=== PATIENT | female | born 1955 | race African-American/Black ===

== ENCOUNTER 2017-05-10 13:10 | Observation (INO) | payer OTHER ==
[2017-05-10] MEDS ORDERED: Sodium Chloride 0.9% 2.5 ML Syringe FLUSH PRN (13:22)
[2017-05-10] MEDS ORDERED: Sodium Chloride 0.9% 10 ML Syringe FLUSH PRN (13:22)
--- NOTE | 2017-05-10 13:28 | EDM.PDOC ---
ED HPI GENERAL MEDICAL PROBLEM - General Chief Complaint: General Stated Complaint: LEFT SIDE NUMBNESS Time Seen by Provider: 05/10/17 13:18 Source of Information: Reports: Patient History Limitations: Reports: No Limitations - History of Present Illness INITIAL COMMENTS - FREE TEXT/NARRATIVE: History of present illness: []Patient has had 3-4 days of intermittent left arm numbness and tingling with pain in the back of the left arm and a headache. She denies any chest pain, shortness of breath, nausea, vomiting or visual changes. She stated that she tried to call Dr. Dumas, but he was unavailable. Review of systems: As per history of present illness and below otherwise all systems reviewed and negative. Past medical history: As per history of present illness and as reviewed below otherwise noncontributory. Surgical history: As per history of present illness and as reviewed below otherwise noncontributory. Social history: No reported history of drug or alcohol abuse. Family history: As per history of present illness and as reviewed below otherwise noncontributory. Physical exam: General: Well developed, well nourished in NAD HEENT: Atraumatic, normocephalic, pupils reactive, negative for conjunctival pallor or scleral icterus, mucous membranes moist, throat clear, neck supple, nontender, trachea midline. Lungs: Clear to auscultation, breath sounds equal bilaterally, chest nontender. No wheezing or rhonchi Heart: S1S2, regular, negative for clicks, rubs, or JVD. Abdomen: Soft, nondistended, nontender. Negative for masses or hepatosplenomegaly. Negative for costovertebral tenderness. Pelvis: Stable nontender. Genitourinary: Deferred. Rectal: Deferred. Extremities: Atraumatic, negative for cords or calf pain. Neurovascular unremarkable. Neuro: Awake, alert, oriented. Cranial nerves II through XII unremarkable. Cerebellum unremarkable. Patient has left arm drift Diagnostics: []CT head or bleed or infarct, CBC negative, chemistry negative, troponin normal , EKG normal sinus rhythm without acute ischemia, Therapeutics: []Aspirin ordered after swallowing study was passed and Dr. Monroy requested Impression: []TIA Plan: []Admit to observation on telemetry Definitive disposition and diagnosis as appropriate pending reevaluation and review of above. left shoulder Pain Score (Numeric/FACES): 8 - Related Data Allergies Allergy/AdvReac Type Severity Reaction Status Date / Time No Known Allergies Allergy Verified 05/10/17 13:15 Home Meds: Home Meds Chlorthalidone 25 mg PO DAILY 05/10/17 [History] Felodipine [Felodipine ER] 5 mg PO DAILY 05/10/17 [History] Losartan [Cozaar] 100 mg PO DAILY 05/10/17 [History] ED ROS GENERAL - Review of Systems Review Of Systems: See Below (See history of present illness) ED EXAM, GENERAL - Physical Exam Exam: See Below (See history of present illness) Course - Vital Signs Last Recorded V/S: Last Vital Signs Temp 98.7 F 05/10/17 13:17 Pulse 79 05/10/17 13:17 Resp 16 05/10/17 13:22 BP 159/92 H 05/10/17 13:22 Pulse Ox 98 05/10/17 13:22 - Orders/Labs/Meds Orders: Active Orders 24 hr Category Date Time Status Patient Status [ADT] Stat ADT 05/10/17 14:55 Active Assess Neurological Status [RC] ASDIRECTED Care 05/10/17 13:22 Active Bedrest [RC] ASDIRECTED Care 05/10/17 13:22 Active Blood Glucose Check, Bedside [RC] STAT Care 05/10/17 13:22 Active Cardiac Monitoring [RC] . DIRECTED Care 05/10/17 13:22 Active EKG Documentation Completion [RC] STAT Care 05/10/17 13:22 Active Height and Weight [RC] UPON Care 05/10/17 13:22 Active Initiate Acute Stroke Protocol [RC] STAT Care 05/10/17 13:22 Active NIH Stroke Scale [RC] ASDIRECTED Care 05/10/17 13:22 Active Nursing Bedside Swallow Screen [RC] ASDIRECTED Care 05/10/17 13:22 Active Oxygen Therapy [RC] ASDIRECTED Care 05/10/17 13:22 Active Stroke Education, General [RC] Click to Edit Care 05/10/17 13:22 Active Vital Signs [RC] Q15M Care 05/10/17 13:22 Active Peripheral IV Insertion Adult [OM.PC] Stat Oth 05/10/17 13:22 Ordered Peripheral IV Insertion Adult [OM.PC] Stat Oth 05/10/17 13:22 Ordered Labs: Laboratory Tests 05/10/17 05/10/17 05/10/17 Range/Units 13:21 13:44 13:44 WBC 3.94 L (4.0-11.0) K/uL RBC 4.76 (4.30-5.90) M/uL Hgb 12.8 (12.0-16.0) g/dL Hct 39.7 (36.0-46.0) % MCV 83.4 (80.0-98.0) fL MCH 26.9 L (27.0-32.0) pg MCHC 32.2 (31.0-37.0) g/dL RDW Std Deviation 41.5 (28.0-62.0) fl RDW Coeff of [place] 14 (11.0-15.0) % Plt Count 209 (150-400) K/uL MPV 10.30 (7.40-12.00) fL Neut % (Auto) 48.0 (48.0-80.0) % Lymph % (Auto) 37.8 (16.0-40.0) % [place] % (Auto) 11.4 (0.0-15.0) % Eos % (Auto) 2.3 (0.0-7.0) % Baso % (Auto) 0.5 (0.0-1.5) % Neut # (Auto) 1.9 (1.4-5.7) K/uL Lymph # (Auto) 1.5 (0.6-2.4) K/uL [place] # (Auto) 0.5 (0.0-0.8) K/uL Eos # (Auto) 0.1 (0.0-0.7) K/uL Baso # (Auto) 0.0 (0.0-0.1) K/uL Nucleated RBC % 0.0 /100WBC Nucleated RBCs # 0 K/uL INR 1.00 APTT 28.7 (18.6-31.3) SEC Sodium (136-145) mmol/L Potassium (3.5-5.1) mmol/L Chloride (98-107) mmol/L Carbon Dioxide (21.0-32.0) mmol/L BUN (7.0-18.0) mg/dL Creatinine (0.6-1.0) mg/dL Est Cr Clr Drug Dosing mL/min Estimated GFR (MDRD) ml/min Glucose (74-106) mg/dL POC Glucose 87 (60-110) mg/dL Calcium (8.5-10.1) mg/dL Total Bilirubin (0.2-1.0) mg/dL AST (15-37) IU/L ALT (14-63) IU/L Alkaline Phosphatase (46-116) U/L Troponin I (0.000-0.056) ng/mL Total Protein (6.4-8.2) g/dL Albumin (3.4-5.0) g/dL Globulin (2.0-3.5) g/dL Albumin/Globulin Ratio (1.3-2.8) TSH 3rd Generation (0.36-3.74) uIU/mL 05/10/17 Range/Units 13:44 WBC (4.0-11.0) K/uL RBC (4.30-5.90) M/uL Hgb (12.0-16.0) g/dL Hct (36.0-46.0) % MCV (80.0-98.0) fL MCH (27.0-32.0) pg MCHC (31.0-37.0) g/dL RDW Std Deviation (28.0-62.0) fl RDW Coeff of [place] (11.0-15.0) % Plt Count (150-400) K/uL MPV (7.40-12.00) fL Neut % (Auto) (48.0-80.0) % Lymph % (Auto) (16.0-40.0) % [place] % (Auto) (0.0-15.0) % Eos % (Auto) (0.0-7.0) % Baso % (Auto) (0.0-1.5) % Neut # (Auto) (1.4-5.7) K/uL Lymph # (Auto) (0.6-2.4) K/uL [place] # (Auto) (0.0-0.8) K/uL Eos # (Auto) (0.0-0.7) K/uL Baso # (Auto) (0.0-0.1) K/uL Nucleated RBC % /100WBC Nucleated RBCs # K/uL INR APTT (18.6-31.3) SEC Sodium 139 (136-145) mmol/L Potassium 3.6 (3.5-5.1) mmol/L Chloride 102 (98-107) mmol/L Carbon Dioxide 26.4 (21.0-32.0) mmol/L BUN 13 (7.0-18.0) mg/dL Creatinine 0.9 (0.6-1.0) mg/dL Est Cr Clr Drug Dosing 69.47 mL/min Estimated GFR (MDRD) > 60.0 ml/min Glucose 81 (74-106) mg/dL POC Glucose (60-110) mg/dL Calcium 9.4 (8.5-10.1) mg/dL Total Bilirubin 0.5 (0.2-1.0) mg/dL AST 27 (15-37) IU/L ALT 29 (14-63) IU/L Alkaline Phosphatase 53 (46-116) U/L Troponin I 0.053 (0.000-0.056) ng/mL Total Protein 7.3 (6.4-8.2) g/dL Albumin 3.8 (3.4-5.0) g/dL Globulin 3.5 (2.0-3.5) g/dL Albumin/Globulin Ratio 1.1 L (1.3-2.8) TSH 3rd Generation 1.51 (0.36-3.74) uIU/mL Meds: Medications Discontinued Medications Generic Name Dose Route Start Last Admin Trade Name Freq PRN Reason Stop Dose Admin Aspirin 324 mg 05/10/17 14:47 05/10/17 14:54 Aspirin PO 05/10/17 14:48 324 mg ONETIME ONE Administration Sodium Chloride 10 ml 05/10/17 13:22 Saline Flush FLUSH ASDIRECTED PRN Keep Vein Open Sodium Chloride 2.5 ml 05/10/17 13:22 Saline Flush FLUSH ASDIRECTED PRN Keep Vein Open Departure - Departure Time of Disposition: 14:54 Disposition: Refer to Observation Condition: Good Clinical Impression: TIA (transient ischemic attack) - Discharge Information Referrals: PCP,Unknown [Primary Care Provider] - Forms: ED Department Discharge - My Orders Last 24 Hours: My Active Orders 05/10/17 13:22 Assess Neurological Status [RC] ASDIRECTED Bedrest [RC] ASDIRECTED Blood Glucose Check, Bedside [RC] STAT Cardiac Monitoring [RC] . DIRECTED EKG Documentation Completion [RC] STAT Height and Weight [RC] UPON Initiate Acute Stroke Protocol [RC] STAT NIH Stroke Scale [RC] ASDIRECTED Nursing Bedside Swallow Screen [RC] ASDIRECTED Oxygen Therapy [RC] ASDIRECTED Stroke Education, General [RC] Click to Edit Vital Signs [RC] Q15M Peripheral IV Insertion Adult [OM.PC] Stat Peripheral IV Insertion Adult [OM.PC] Stat 05/10/17 14:55 Patient Status [ADT] Stat - Assessment/Plan Last 24 Hours: My Active Orders 05/10/17 13:22 Assess Neurological Status [RC] ASDIRECTED Bedrest [RC] ASDIRECTED Blood Glucose Check, Bedside [RC] STAT Cardiac Monitoring [RC] . DIRECTED EKG Documentation Completion [RC] STAT Height and Weight [RC] UPON Initiate Acute Stroke Protocol [RC] STAT NIH Stroke Scale [RC] ASDIRECTED Nursing Bedside Swallow Screen [RC] ASDIRECTED Oxygen Therapy [RC] ASDIRECTED Stroke Education, General [RC] Click to Edit Vital Signs [RC] Q15M Peripheral IV Insertion Adult [OM.PC] Stat Peripheral IV Insertion Adult [OM.PC] Stat 05/10/17 14:55 Patient Status [ADT] Stat
--- NOTE | 2017-05-10 13:40 | CT ---
EXAMINATION: Non contrast CT head. Coronal and sagittal reformats. HISTORY: Stroke code FINDINGS: No evidence of intra or extra axial hemorrhage, mass, midline shift, hydrocephalus or edema. No hypoattenuation changes in the major vascular territories to suggest acute infarct. No abnormal intracranial calcifications are detected. No evidence of substantial vascular calcificat ions. Paranasal sinuses and mastoid air cells are well aerated without substantial findings. Orbits and gl obes are symmetric. Pituitary fossa appears unremarkable. Calvarium is intact. No evidence of skull fracture. IMPRESSION: No acute intracranial findings. Above findings were called to the ER at 1:36 PM.
[2017-05-10 14:22] LABS: CHLORIDE,CL 102 mmol/L (98-107); SODIUM,NA 139 mmol/L (136-145)
[2017-05-10] MEDS ORDERED: Aspirin 81 MG Tab.Chew PO ONE (14:47)
[2017-05-10] MEDS ORDERED: Ondansetron 4 MG/2 ML SDV IVPUSH PRN (15:49)
[2017-05-10] MEDS ORDERED: Acetaminophen 325 MG Tab PO PRN (15:49)
[2017-05-10] MEDS ORDERED: Docusate Sodium 100 MG Cap PO PRN (15:49)
--- NOTE | 2017-05-10 16:07 | PCM.HP ---
H&P History of Present Illness - General Date of Service: 05/10/17 Source of Information: Patient, Old Records (clinic notes reviewed) History Limitations: Reports: No Limitations - History of Present Illness Initial Comments - Free Text/Narative: This 62 year old AA female with pmh of uncontrolled HTN and MVP presented to the ED today with complaints of L arm parathesias and pain, along with headache and lightheadedness. She reports she has had this L arm, shoulder numbness, tingling and pain on and off for the past 4 days. The pain is mainly upper trapezius and shoulder blade that then shoots down to her L arm into her arm pit and onto her chest. Worsens with movement of L arm and shoulder, better with rest. Denies any recent trauma or repetitive movements. She reports associated nausea, frontal headache and some lightheadedness. She felt this time the pain was worse and decided to seek out medical treatment. She reports she saw Dr Flood end of March and was started on Felodipine due to uncontrolled HTN and she wonders if this was causing her symptoms. She reports she was on Amlodipine before and had to stop if due to muscle pain. She denies neck pain, fever or URI symptoms. No dyspnea or specifically chest pain. Her shoulder pain radiates to her upper shoulder and chest. No abdominal pain or urinary symptoms. No black or bloody BMs. She is eating and drinking well recently. She has significant family history of cardiac disease and CVAs, with her father dying of "massive heart attack" and a grandfather with large stroke. He mother has CAD and DM along with multiple uncles who have since passed from CVA and MIs. She reports she has had history of TIAs with L sided weakness and pain, not quite like this episode. This episode is worse pain. In the ED labwork all WNL. Head CT obtained, which was negative for any acute intracranial abnormalities. EKG SR with noteable LVH, no acute ischemic changes. She will be admitted with possible TIA. left shoulder Pain Score (Numeric/FACES): 8 - Related Data Allergies/Adverse Reactions: Allergies Allergy/AdvReac Type Severity Reaction Status Date / Time No Known Allergies Allergy Verified 05/10/17 13:15 Home Medications: Home Meds Chlorthalidone 25 mg PO DAILY 05/10/17 [History] Felodipine [Felodipine ER] 5 mg PO DAILY 05/10/17 [History] Losartan [Cozaar] 100 mg PO DAILY 05/10/17 [History] Past Medical History HEENT History: Reports: Impaired Vision Cardiovascular History: Reports: High Cholesterol, Hypertension. Denies: Afib, Blood Clots/VTE/DVT, MT Respiratory History: Reports: None. Denies: Asthma, COPD, PE Gastrointestinal History: Reports: None. Denies: Bowel Obstruction, GERD, GI Bleed Genitourinary History: Reports: None. Denies: Chronic Renal Insuffiency PROFESSOR OF PHYSICS History: Reports: None Musculoskeletal History: Reports: None Neurological History: Reports: TIA. Denies: CVA, Head Trauma, Migraines Psychiatric History: Reports: None. Denies: Anxiety, Depression Endocrine/Metabolic History: Reports: None. Denies: Diabetes, Type II, Hypothyroidism, Obesity/BMI 30+ Hematologic History: Reports: None. Denies: Anticoagulation Therapy Immunologic History: Reports: None Oncologic (Cancer) History: Reports: None Dermatologic History: Reports: None - Infectious Disease History Infectious Disease History: Reports: Chicken Pox - Past Surgical History HEENT Surgical History: Reports: None Cardiovascular Surgical History: Reports: None Respiratory Surgical History: Reports: None GI Surgical History: Reports: None Female Surgical History: Reports: None, Hysterectomy Endocrine Surgical History: Reports: None Neurological Surgical History: Reports: None Musculoskeletal Surgical History: Reports: None Oncologic Surgical History: Reports: None Social & Family History - Family History Cardiac: Reports: Aneurysm, CAD, Heart Failure, Hypertension, MT Neurological: Reports: CVA - Tobacco Use Smoking Status *Q: Never Smoker Second Hand Smoke Exposure: No - Caffeine Use Caffeine Use: Reports: None - Recreational Drug Use Recreational Drug Use: No H&P Review of Systems - Review of Systems: Review Of Systems: See Below General: Reports: No Symptoms. Denies: Fever, Chills, Malaise, Weakness HEENT: Reports: Headaches (frontal,better now.). Denies: Sinus Congestion, Sore Throat, Vertigo Pulmonary: Denies: Shortness of Breath, Wheezing, Cough, Sputum Cardiovascular: Reports: Lightheadedness. Denies: Chest Pain, Edema, Syncope Gastrointestinal: Reports: No Symptoms. Denies: Abdominal Pain, Black Stool, Bloody Stool, Nausea, Vomiting Genitourinary: Reports: No Symptoms. Denies: Dysuria, Frequency, Burning, Pain Musculoskeletal: Reports: Arm Pain (L arm pain radiated from L shoulder and upper trapezius.). Denies: Neck Pain Skin: Reports: No Symptoms Psychiatric: Reports: No Symptoms Neurological: Reports: Dizziness, Headache, Paresthesia (L arm). Denies: Seizure, Syncope, Trouble Speaking, Difficulty Walking, Change in Speech, Gait Disturbance Hematologic/Lymphatic: Reports: No Symptoms Immunologic: Reports: No Symptoms Exam - Exam Exam: See Below - Vital Signs Vital Signs: Last Vital Signs Temp 98.7 F 05/10/17 13:17 Pulse 57 L 05/10/17 14:22 Resp 16 05/10/17 14:22 BP 154/95 H 05/10/17 14:22 Pulse Ox 100 05/10/17 14:22 Weight: 77.9 kg - Exam Quality Assessment: Supplemental Oxygen, DVT Prophylaxis General: Alert, Oriented, Cooperative HEENT: Conjunctiva Clear, Mucosa Moist & [place], Posterior Pharynx Clear, Pupils Equal, Pupils Reactive Neck: Supple, Trachea Midline, Full Range of Motion. No: Lymphadenopathy Lungs: Clear to Auscultation, Normal Respiratory Effort Cardiovascular: Regular Rate, Regular Rhythm, Normal S1, Normal S2 GI/Abdominal Exam: Normal Bowel Sounds, Soft, Non-Tender, No Organomegaly, No Distention, No Abnormal Bruit, No Mass, Pelvis Stable Extremities: Normal Inspection, Normal Range of Motion, Non-Tender, No Pedal Edema, Normal Capillary Refill Neurological: Cranial Nerves Intact, Reflexes Equal Bilateral, Strength Equal Bilateral, Normal Gait, Normal Speech Neuro Extensive - Mental Status: Alert, Oriented x3, Normal Mood/Affect, Normal Cognition Neuro Extensive - Motor, Sensory, Reflexes: CN II-XII Intact, Normal Gait, Normal Reflexes Psychiatric: Alert, Normal Affect, Normal Mood - Patient Data Result Diagrams: 05/10/17 13:44 05/10/17 13:44 EKG INTERPRETATION EKG Date: 05/10/17 Rhythm: NSR Rate (Beats/Min): 60 P-Wave: Present QRS: Normal (LVH noted) ST-T: Normal Comparison: No Change *Q Meaningful Use (ADM) - VTE *Q VTE Criteria *Q: - Stroke *Q Stroke Criteria *Q: - AMI *Q AMI Criteria *Q: - Problem List (1) Arm paresthesia, left SNOMED Code(s): 43453298 ICD Code: R20.2 - PARESTHESIA OF SKIN Status: Acute Current Visit: Yes (2) Atypical chest pain SNOMED Code(s): 568561830 ICD Code: R07.89 - OTHER CHEST PAIN Status: Acute Current Visit: Yes (3) Hx of mitral valve prolapse SNOMED Code(s): 671041486 ICD Code: Z86.79 - PERSONAL HISTORY OF OTHER DISEASES OF THE CIRCULATORY SYSTEM Status: Acute Current Visit: Yes (4) TIA (transient ischemic attack) SNOMED Code(s): 782733317 ICD Code: G45.9 - TRANSIENT CEREBRAL ISCHEMIC ATTACK, UNSPECIFIED Status: Acute Current Visit: Yes Qualifiers: Transient cerebral ischemia type: unspecified Qualified Code(s): G45.9 - Transient cerebral ischemic attack, unspecified (5) Uncontrolled hypertension SNOMED Code(s): 42198138 ICD Code: I10 - ESSENTIAL (PRIMARY) HYPERTENSION Status: Chronic Current Visit: Yes Problem List Initiated/Reviewed/Updated: Yes Orders Last 24hrs: Active Orders 24 hr Category Date Time Status Ambulate [RC] ASDIRECTED Care 05/10/17 15:49 Ordered Intake and Output [RC] QSHIFT Care 05/10/17 15:50 Ordered Oxygen Therapy [RC] PRN Care 05/10/17 15:49 Ordered Up to Chair [RC] ASDIRECTED Care 05/10/17 15:49 Ordered VTE/DVT Education [RC] PER UNIT ROUTINE Care 05/10/17 15:49 Ordered Vital Signs [RC] Q4H Care 05/10/17 15:49 Ordered Heart Healthy Diet [DIET] Diet 05/10/17 Dinner Ordered Ang Head w wo Cont [MR] Urgent Exams 05/10/17 15:51 Ordered Ang Neck w wo Cont [MR] Urgent Exams 05/10/17 15:51 Ordered Brain w wo Cont [MR] Urgent Exams 05/10/17 15:51 Ordered Echo 2D wo Cont [US] Urgent Exams 05/10/17 15:59 Ordered GLYCOSYLATED HEMOGLOBIN,HGBA1C [CHEM] Routine Lab 05/10/17 15:53 Ordered LIPID PANEL [CHEM] AM Lab 05/11/17 05:11 Ordered TROPONIN I [CHEM] Q6H Lab 05/10/17 19:30 Ordered TROPONIN I [CHEM] Q6H Lab 05/11/17 01:30 Ordered Acetaminophen [Tylenol] Med 05/10/17 15:49 Ordered 650 mg PO Q4H PRN Docusate Sodium [Colace] Med 05/10/17 15:49 Ordered 100 mg PO BID PRN Enoxaparin [Lovenox] Med 05/11/17 09:00 Ordered 40 mg SUBCUT DAILY Ondansetron [Zofran] Med 05/10/17 15:49 Ordered 4 mg IVPUSH Q4H PRN Resuscitation Status Routine Resus Stat 05/10/17 15:49 Ordered Medication Orders Acetaminophen (Tylenol) 650 mg PO Q4H PRN PRN Reason: Pain (Mild 1-3) Docusate Sodium (Colace) 100 mg PO BID PRN PRN Reason: Constipation Enoxaparin Sodium (Lovenox) 40 mg SUBCUT DAILY OJCE Ondansetron HCl (Zofran) 4 mg IVPUSH Q4H PRN PRN Reason: Nausea Assessment/Plan Comment:: This 62 year old female admitted with possible TIA, atypical chest pain and uncontrolled HTN 1. Possible TIA; L arm parathesia, continues slightly. Having more pain and especially to upper trapezius muscle and lower shoulder blade to palpation. Consider musculoskeletal? Will complete workup since she reports this is similar to prior TIA and significant personal and family history. MRI brain and MRA head and neck ordered along with ECHO. Will monitor for 24 hours on telemetry. Will obtain fasting lipid panel and A1c. 2. Atypical chest pain: Likely radiation from shoulder pain, but again due to pmh will rule out ACS. Trend troponins and monitor on telemetry. 3. L shoulder pain: Will try heat and ice to L shoulder. Tylenol and Orphenadrine PRN. 4. HTN: BP 130-160/80s. Will continue home medications. VTE prophylaxis: Lovenox. Dispo: 1-2 days pending workup.
[2017-05-10] MEDS ORDERED: Cyclobenzaprine 5 MG Tab PO PRN (16:22)
[2017-05-10] MEDS ORDERED: traMADol 50 MG Tab PO PRN (16:24)
[2017-05-11] MEDS ORDERED: Enoxaparin 40 MG/0.4 ML Syringe SUBCUT SCH (09:00)
[2017-05-11] MEDS ORDERED: Losartan 50 MG Tab PO SCH (09:00)
[2017-05-11] MEDS ORDERED: Chlorthalidone 25 MG Tab PO SCH (09:00)
[2017-05-11] MEDS ORDERED: Aspirin 81 MG Tab.EC PO SCH (09:00)
--- NOTE | 2017-05-11 09:17 | US ---
EXAMINATION: Carotid US with fernandez scale and duplex imaging. HISTORY: Possible TIA FINDINGS: Ultrasound examination of bilateral cervical carotid arteries was performed using fernandez scale and dupl ex imaging. Minimal scattered atheromatous changes noted within the carotid arteries. Antegrade gina w noted within the vertebrals. These are the peak velocities in cm per second (systole), right and left respectively, by a comma: CCA (common carotid artery) - 133, 117 ICA (internal carotid artery) - 134, 133 ECA (External carotid artery) - 25, 65 ICA/CCA systolic ratio Right - 1.2 Left - 1.5 IMPRESSION: There is approximately 50-69% stenosis within the internal carotid arteries bilaterally secondary to velocities. However no significant stenosis noted on grayscale imaging.
--- NOTE | 2017-05-11 09:47 | MR ---
EXAM DATE: 05/10/17 PATIENT'S AGE: 62 Patient: MECHE PERKINS Facility: [place], [place] Site . Site : 1955 Study: MRI Head Angio [id number]/13/2018 8:39:11 PM Ordering Physician: Porfirio Omalley Final Report: INDICATION: Left arm weakness and paresthesias TECHNIQUE: MRI: Multiplanar multiweighted MRI of the brain and brainstem was performed without intravenous contrast. MRA head: Magnetic resonance angiography of the [place] was performed using separate data set acquisitions including a non-contrast [id number] technique to produce axial thin-slice source images. These images were then used to generate maximum intensity projection (MIP) images at the request of the referring physician. COMPARISON: None available. FINDINGS: MRI: There are mild scattered foci of punctate white matter FLAIR hyperintensity, likely representing chronic small vessel ischemic disease. 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 There is no intra- or extraaxial fluid collection. The ventricles are normal in size and position without evidence of hydrocephalus. The posterior fossa is unremarkable. The pituitary and sella are normal. The brainstem and craniocervical junction are unremarkable. Diffusion-weighted images reveal no hyperintensities to suggest acute cerebral infarction. The paranasal sinuses are normal. The visualized portions of the mastoids are unremarkable. The orbits appear normal. MRA head: There is no aneurysm. There is no significant stenosis of the intracranial arteries. IMPRESSION: 1. No MRI evidence of acute stroke. 2. No significant stenosis of the intracranial arteries 3. Mild intracranial chronic small vessel ischemic disease Dictated by Ramesh Baugh MD @ May 10 2017 8:47PM (Electronic Signature) Report Signed by Proxy. ANI
--- NOTE | 2017-05-11 09:48 | MR ---
EXAM DATE: 05/10/17 PATIENT'S AGE: 62 Patient: MECHE PERKINS Facility: [place], [place] Site . Site : 1955 Study: MRI Head Angio [id number]/13/[id number] 8:39:11 PM Ordering Physician: Porfirio Omalley Final Report: INDICATION: Left arm weakness and paresthesias TECHNIQUE: MRI: Multiplanar multiweighted MRI of the brain and brainstem was performed without intravenous contrast. MRA head: Magnetic resonance angiography of the [place] was performed using separate data set acquisitions including a non-contrast [id number] technique to produce axial thin-slice source images. These images were then used to generate maximum intensity projection (MIP) images at the request of the referring physician. COMPARISON: None available. FINDINGS: MRI: There are mild scattered foci of punctate white matter FLAIR hyperintensity, likely representing chronic small vessel ischemic disease. 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 There is no intra- or extraaxial fluid collection. The ventricles are normal in size and position without evidence of hydrocephalus. The posterior fossa is unremarkable. The pituitary and sella are normal. The brainstem and craniocervical junction are unremarkable. Diffusion-weighted images reveal no hyperintensities to suggest acute cerebral infarction. The paranasal sinuses are normal. The visualized portions of the mastoids are unremarkable. The orbits appear normal. MRA head: There is no aneurysm. There is no significant stenosis of the intracranial arteries. IMPRESSION: 1. No MRI evidence of acute stroke. 2. No significant stenosis of the intracranial arteries 3. Mild intracranial chronic small vessel ischemic disease Dictated by Ramesh Baugh MD @ May 10 2017 8:47PM (Electronic Signature) Report Signed by Proxy. ANI
[2017-05-11] MEDS ORDERED: atorvaSTATin 40 MG Tab PO SCH (10:00)
--- NOTE | 2017-05-11 10:06 | PCM.DCSUM1 ---
Discharge Summary - Hospital Course Brief History: This 62 year old AA female with pmh of uncontrolled HTN and MVP presented to the ED today with complaints of L arm parathesias and pain, along with headache and lightheadedness. She reports she has had this L arm, shoulder numbness, tingling and pain on and off for the past 4 days. The pain is mainly upper trapezius and shoulder blade that then shoots down to her L arm into her arm pit and onto her chest. Worsens with movement of L arm and shoulder, better with rest. Denies any recent trauma or repetitive movements. She reports associated nausea, frontal headache and some lightheadedness. She felt this time the pain was worse and decided to seek out medical treatment. She reports she saw Dr Flood end of March and was started on Felodipine due to uncontrolled HTN and she wonders if this was causing her symptoms. She reports she was on Amlodipine before and had to stop if due to muscle pain. She denies neck pain, fever or URI symptoms. No dyspnea or specifically chest pain. Her shoulder pain radiates to her upper shoulder and chest. No abdominal pain or urinary symptoms. No black or bloody BMs. She is eating and drinking well recently. She has significant family history of cardiac disease and CVAs, with her father dying of "massive heart attack" and a grandfather with large stroke. He mother has CAD and DM along with multiple uncles who have since passed from CVA and MIs. She reports she has had history of TIAs with L sided weakness and pain, not quite like this episode. This episode is worse pain. In the ED labwork all WNL. Head CT obtained, which was negative for any acute intracranial abnormalities. EKG SR with noteable LVH, no acute ischemic changes. She will be admitted with possible TIA. - Discharge Data Discharge Date: 05/11/17 Discharge Disposition: Home, Self-Care 01 Condition: Good - Discharge Diagnosis/Problem(s) (1) Arm paresthesia, left SNOMED Code(s): 39280923 ICD Code: R20.2 - PARESTHESIA OF SKIN Status: Acute Current Visit: Yes (2) Atypical chest pain SNOMED Code(s): 315699421 ICD Code: R07.89 - OTHER CHEST PAIN Status: Acute Current Visit: Yes (3) Hx of mitral valve prolapse SNOMED Code(s): 315284757 ICD Code: Z86.79 - PERSONAL HISTORY OF OTHER DISEASES OF THE CIRCULATORY SYSTEM Status: Acute Current Visit: Yes (4) TIA (transient ischemic attack) SNOMED Code(s): 220748559 ICD Code: G45.9 - TRANSIENT CEREBRAL ISCHEMIC ATTACK, UNSPECIFIED Status: Acute Current Visit: Yes Qualifiers: Transient cerebral ischemia type: unspecified Qualified Code(s): G45.9 - Transient cerebral ischemic attack, unspecified (5) Uncontrolled hypertension SNOMED Code(s): 42923658 ICD Code: I10 - ESSENTIAL (PRIMARY) HYPERTENSION Status: Chronic Current Visit: Yes - Patient Instructions Diet: Heart Healthy Diet Activity: As Tolerated, Rest and Relax Today Showering/Bathing: May Shower Notify Provider of: Fever, Increased Pain, Swelling and Redness, Drainage, Nausea and/or Vomiting - Discharge Plan Prescriptions/Med Rec: Aspirin [Halfprin] 81 mg PO DAILY #60 tab.ec atorvaSTATin [Lipitor] 40 mg PO BEDTIME #30 tablet Home Medications: Home Meds Chlorthalidone 25 mg PO DAILY 05/10/17 [History] Felodipine [Felodipine ER] 5 mg PO DAILY 05/10/17 [History] Losartan [Cozaar] 100 mg PO DAILY 05/10/17 [History] Acetaminophen [Tylenol] 650 mg PO Q4H PRN #0 tablet 05/11/17 [Rx] Aspirin [Halfprin] 81 mg PO DAILY #60 tab.ec 05/11/17 [Rx] atorvaSTATin [Lipitor] 40 mg PO BEDTIME #30 tablet 05/11/17 [Rx] Patient Handouts: Shoulder Pain, Atorvastatin tablets, Aspirin, ASA oral tablets, Hypertension Referrals: [facility] [Outside] Stanislaw Flood MD [Physician] - 05/24/17 9:00 am Leopoldo Fleming MD [Physician] - 05/23/17 2:00 pm - Discharge Summary/Plan Comment DC Time >30 min.: No Discharge Summary/Plan Comment: Discharge Diagnoses: L shoulder/upper back pain HTN Dyslipidemia Carotid stenosis- bilaterally Gertrude was admitted for possible TIA but suspicion was low due to palpable and reporducible pain to L shoulder and upper back which radiated to L arm and chest. Workup for atypical chest pain and TIA were completed due to pmh and family history. MRI/MRA of brain negative for acute stroke only noting chronic small vessel ischemic disease. She decline MRA of neck, so carotid US was completed, which revealed 50-69% stenosis of internal carotid arteries bilaterally secondary to velocities, however no significant stenosis noted on grayscale imaging. Lipid panel obtained, total 193m LDL 131, HDl 49, Triglycerides 65. A1c 6.0. Troponins were negative, telemetry did not show any ischemic changes. L shoulder/back pain improved with Tylenol. Pain likely secondary to musculoskeletal concern rather than TIA or ACS. Both ruled out. BP well controlled during stay with home medications. She is concerned as to why her BP is well controlled here but at [facility] with her machine she never gets low readings. She was encouraged to bring BP cuff to her next appointment with Dr Flood so they can check it. She reports she is complaint with her medications at home. She was told to start taking ASA daily, which she reports she does not do now on a consistent basis. I will also start Atorvastatin 40 mg daily for carotid stenosis and dyslipidemia. She was encouraged to continue DASH diet given by Dr Flood. She will have follow up with Dr Flood and Dr Fleming to establish care since Dr Cochran is no longer here. All questions addressed. For shoulder pain she was encouraged to rest and relax today, use Tylenol for pain control and alternate heat and ice PRN. She was encouraged to return to ED or clinic if concerns should arise. - General Info Date of Service: 05/11/17 Admission Dx/Problem (Free Text: L shoulder pain, parathesias Subjective Update: Feeling better this morning, tenderness still to L shoulder upper trapezius muscle to palpation. But this is improved from yesterday. No further parathesias to L arm or radiation to chest. Tylenol helped with this pain. No further headache. Functional Status: Reports: Pain Controlled, Tolerating Diet, Ambulating, Urinating - Review of Systems General: Reports: No Symptoms. Denies: Fever, Weakness, Fatigue, Malaise HEENT: Reports: No Symptoms. Denies: Eye Pain, Headaches, Sore Throat, Rhinitis , Visual Changes Pulmonary: Reports: No Symptoms. Denies: Shortness of Breath Cardiovascular: Reports: No Symptoms. Denies: Chest Pain, Palpitations Gastrointestinal: Reports: No Symptoms. Denies: Abdominal Pain, Nausea, Vomiting Genitourinary: Reports: No Symptoms. Denies: Dysuria, Frequency, Burning Musculoskeletal: Reports: Shoulder Pain (L shoulder/trapezius much improved. No further numbness or tingling.). Denies: Neck Pain, Back Pain, Leg Pain Skin: Reports: No Symptoms Neurological: Reports: No Symptoms Psychiatric: Reports: No Symptoms - Patient Data Vitals - Most Recent: Last Vital Signs Temp 97.2 F 05/11/17 08:56 Pulse 61 05/11/17 08:56 Resp 16 05/11/17 08:56 BP 127/71 05/11/17 09:22 Pulse Ox 97 05/11/17 08:56 Weight - Most Recent: 77.9 kg I&O - Last 24 hours: Intake & Output 05/10/17 05/11/17 05/11/17 22:59 06:59 14:59 Intake Total 1100 Output Total 1200 Balance -100 Lab Results - Last 24 hrs: Laboratory Results - last 24 hr 05/10/17 05/11/17 05/11/17 Range/Units 20:20 01:22 05:01 Troponin I 0.051 0.051 (0.000-0.056) ng/mL Triglycerides 65 (0-200) mg/dL Cholesterol 193 (50-200) mg/dL LDL Cholesterol, Calc 131 (60-180) mg/dL VLDL Cholesterol 13 (5-55) mg/dL HDL Cholesterol 49 (40-60) mg/dL Cholesterol/HDL Ratio 3.9 (3.3-6.0) Med Orders - Current: Current Medications Acetaminophen (Tylenol) 650 mg PO Q4H PRN PRN Reason: Pain (Mild 1-3) Last Admin: 05/10/17 21:41 Dose: 650 mg Aspirin (Halfprin) 81 mg PO DAILY PENDING SALE TO [facility] Last Admin: 05/11/17 09:25 Dose: 81 mg Atorvastatin Calcium (Lipitor) 40 mg PO BEDTIME PENDING SALE TO [facility] Chlorthalidone (Chlorthalidone) 25 mg PO DAILY PENDING SALE TO [facility] Last Admin: 05/11/17 09:23 Dose: 25 mg Cyclobenzaprine HCl (Flexeril) 5 mg PO BID PRN PRN Reason: muscle pain Docusate Sodium (Colace) 100 mg PO BID PRN PRN Reason: Constipation Enoxaparin Sodium (Lovenox) 40 mg SUBCUT DAILY PENDING SALE TO [facility] Last Admin: 05/11/17 09:26 Dose: 40 mg Felodipine (Felodipine Er) 5 mg PO DAILY JOCE Losartan Potassium (Cozaar) 100 mg PO DAILY JOCE Last Admin: 05/11/17 09:22 Dose: 100 mg Ondansetron HCl (Zofran) 4 mg IVPUSH Q4H PRN PRN Reason: Nausea Tramadol HCl (Ultram) 50 mg PO Q6H PRN PRN Reason: Pain Discontinued Medications Aspirin (Aspirin) 324 mg PO ONETIME ONE Stop: 05/10/17 14:48 Last Admin: 05/10/17 14:54 Dose: 324 mg Sodium Chloride (Saline Flush) 10 ml FLUSH ASDIRECTED PRN PRN Reason: Keep Vein Open Sodium Chloride (Saline Flush) 2.5 ml FLUSH ASDIRECTED PRN PRN Reason: Keep Vein Open - Exam Quality Assessment: Reports: DVT Prophylaxis. Denies: Supplemental Oxygen General: Reports: Alert, Oriented, Cooperative, No Acute Distress Neck: Reports: Supple, +2 Carotid Pulse wo Bruit Lungs: Reports: Clear to Auscultation, Normal Respiratory Effort Cardiovascular: Reports: Regular Rate, Regular Rhythm GI/Abdominal Exam: Normal Bowel Sounds, Soft, Non-Tender, No Organomegaly, No Distention, No Abnormal Bruit, No Mass, Pelvis Stable Back Exam: Reports: Normal Inspection, Full Range of Motion, Other (tenderness over L shoulder blade and trapezius muscle, but improved since admission. ) Skin: Reports: Warm, Dry, Intact Neurological: Reports: No New Focal Deficit Psy/Mental Status: Reports: Alert, Normal Affect, Normal Mood *Q Meaningful Use (DIS) - VTE *Q VTE Criteria *Q: - Stroke *Q Stroke Criteria *Q: - AMI *Q AMI Criteria *Q:
--- NOTE | 2017-05-17 14:05 | ECHO ---
EXAM DATE: 05/10/17 PATIENT'S AGE: 62 The echocardiogram report can be seen in this patient's EMR (Electronic Medical Record) in the Reports section. The report has also been scanned into PACs. ANI
== END 2017-05-11 10:45 | disposition home or self-care (01) ==
LOC: MW.ED 13:10 → MW.MS 15:22
PROVIDERS: ADMIT Family Medicine; ATTEND Family Medicine
DX: M54.9 Dorsalgia, unspecified (principal); M25.512 Pain in left shoulder; R07.89 Other chest pain; I10 Essential (primary) hypertension; I65.23 Occlusion and stenosis of bilateral carotid arteries; E78.00 Pure hypercholesterolemia, unspecified; Z82.49 Family history of ischemic heart disease and other diseases of the circulatory system; Z82.3 Family history of stroke; Z86.73 Personal history of transient ischemic attack (TIA), and cerebral infarction without residual deficits; Z86.79 Personal history of other diseases of the circulatory system; Z79.899 Other long term (current) drug therapy; Z79.82 Long term (current) use of aspirin
CPT/HCPCS: 36415; 70450; 70546; 70551; 80053; 80061; 82962; 83036; 84443; 84484; 85025; 85610; 85730; 93005; 93306; 93880; 99285; A9270; J1650; 96372; 99283; G0378